=== PATIENT | female | born 1940 | race Caucasian/White ===

== ENCOUNTER 2018-06-18 10:24 | Emergency (ER) | payer OTHER ==
[~2018-06-18] VITALS: Ht 154.9 cm; Wt 69.9 kg
[~2018-06-18 10:24] MED LIST: ALENDRONATE SOD70 MG PO; AMLODIPINE BESY10 MG PO; ASA81 MG PO; CALCIUM600 MG PO; CARAFATE1 GM/10 ML PO; CARdura 2MG TABLET PO; CETIRIZINE1 MG/1 ML PO; CILOSTAZOL50 MG PO; DICLOFENAC POTA50 MG PO; DIOVAN40 MG PO; LOSARTAN-HCTZ1 EAC2 PO; NAPR500T14 PO; NORVASC2.5 M1 PO; OMEPRAZOLE20 M1 PO; OXYBUTYNIN CHLOR5 MG PO; POLY119PG PO; PROTONIX40 MG PO; SIMVASTATIN20 MG PO; VITAMIN E200 UNI6 PO
== END 2018-06-18 14:03 | disposition home or self-care (01) ==
LOC: ER 10:24
DX: K63.2 Fistula of intestine (principal)

== ENCOUNTER 2021-10-30 05:40 | Day surgery (SDC) | payer OTHER ==
[~2021-10-30 05:40] MED LIST changes: +CALCIUM 600+D1 EAC1; +MULTIVITAMINS1 EAC4 PO; +VITAMIN B12 PO
[2021-10-30] MEDS ORDERED: MACROBID 100 M100 MG PO (13:14)
[2021-10-30] MEDS ORDERED: ULTRACET PO (13:15)
== END 2021-10-30 17:59 | disposition home or self-care (01) ==
LOC: CIR.AMB 05:40
PROVIDERS: ATTEND Obstetrics & Gynecology Gynecology
DX: N81.6 Rectocele (principal); N81.5 Vaginal enterocele; Z20.822 Contact with and (suspected) exposure to COVID-19; I10 Essential (primary) hypertension; E78.5 Hyperlipidemia, unspecified